=== PATIENT | female | born 1995 | race Caucasian/White ===

== ENCOUNTER 2019-04-21 21:27 | Emergency (ER) | payer OTHER ==
[~2019-04-21] VITALS: Ht 167.6 cm; Wt 69.1 kg
[2019-04-21] MEDS ORDERED: MULT1TAB8 PO (21:37)
[2019-04-21] MEDS ORDERED: DEPO150I12 IM (21:37)
[2019-04-21] MEDS ORDERED: ADACEL/BOOSTRIX VACCINE (DIPHTH/PERTUSS/ACELL/TETANUS)0.5ML SYR (90715) IM ONE (21:45)
[2019-04-21] MEDS ORDERED: AUGMENTIN 875 MG TAB PO ONE (21:45)
[2019-04-21] MEDS ORDERED: AUGM875T28 PO (22:36)
[2019-04-21 22:55] VITALS: BP 121/75
== END 2019-04-21 22:56 | disposition home or self-care (01) ==
LOC: M ED 21:27 → EDBD 21:27 → M ED 22:56
DX: S51.831A Puncture wound without foreign body of right forearm, initial encounter (principal); S50.812A Abrasion of left forearm, initial encounter; W54.0XXA Bitten by dog, initial encounter; Y92.018 Other place in single-family (private) house as the place of occurrence of the external cause; Z79.3 Long term (current) use of hormonal contraceptives; F17.210 Nicotine dependence, cigarettes, uncomplicated

== ENCOUNTER 2019-07-05 01:58 | Emergency (ER) | payer OTHER ==
[~2019-07-05] VITALS: Ht 160 cm; Wt 72.0 kg
[~2019-07-05 01:58] MED LIST: AUGM875T28 PO; DEPO150I12 IM; MULT1TAB8 PO
[2019-07-05] MEDS ORDERED: ACETAMINOPHEN TAB 650MG DOSE (2X325MG) PO ONE (02:15)
[2019-07-05 02:54] LABS: INFLUENZA A AMPLIFICATION POSITIVE (NEGATIVE); INFLUENZA B AMPLIFICATION NEGATIVE (NEGATIVE)
[2019-07-05] MEDS ORDERED: OSEL75CA PO (03:21)
[2019-07-05] MEDS ORDERED: OSELTAMIVIR PHOSPHATE 75 MG CAP (TAMIFLU) PO ONE (03:30)
[2019-07-05 03:31] VITALS: BP 118/64
--- NOTE | 2019-07-05 09:49 | REP ---
Clinical: Cough . Comparison: None Technique: PA and lateral. Findings: The mediastinum and cardiac silhouette are normal. The lung irwin are clear and without acute consolidation, effusion, or pneumothorax. The skeletal structures are intact and normal. Impression: 1. No acute cardiopulmonary process. Electronically Signed by Danielito Newton MD 07/05/2019 07:47 A
== END 2019-07-05 03:34 | disposition home or self-care (01) ==
LOC: M ED 01:58
DX: J09.X2 Influenza due to identified novel influenza A virus with other respiratory manifestations (principal)